=== PATIENT | male | born 1955 | race Caucasian/White ===

== ENCOUNTER 2023-10-20 11:00 | Outpatient (CLI) | payer MEDICARE ==
[~2023-10-20 11:00] MED LIST: Iopamidol 300 61% 100 ML VIAL FS ONE
== END 2023-10-20 11:01 | disposition home or self-care (01) ==
LOC: CSHCT 11:00
PROVIDERS: ATTEND Family Medicine
DX: N18.31 Chronic kidney disease, stage 3a (principal); J98.4 Other disorders of lung; N28.1 Cyst of kidney, acquired
CPT/HCPCS: 74177; Q9967